=== PATIENT | male | born 1985 | race African-American/Black ===

== ENCOUNTER 2019-03-28 08:42 | Emergency (ER) | payer SELFPAY ==
[~2019-03-28] VITALS: Ht 177.8 cm; Wt 156.5 kg
[2019-03-28] MEDS ORDERED: MORPHINE SULFATE 4 MG/ML SYR/VIAL IV ONE (09:15)
[2019-03-28] MEDS ORDERED: ONDANSETRON HCL 4 MG/2 ML VIAL IV ONE (09:15)
[2019-03-28 09:44] LABS: Basophils # (auto) 0.1 uL; Eosinophils # (auto) 0.1 uL; Lymphocytes # (auto) 1.2 uL; Monocytes # (auto) 0.7 uL
[2019-03-28 09:47] LABS: Basophils % (auto) 0.9 % (0.0-2.0); Hemoglobin 14.3 g/dL (13.5-17.5); Lymphocytes % (auto) 17.1 % (10.0-50.0); Mean Corpuscular Hemoglobin 25.7 pg (28.0-32.0); Mean Corpuscular Hgb Conc. 33.3 g/dL (32.0-36.0); Mean Corpuscular Volume 77.1 fL (80.0-100.0); Monocytes % (auto) 9.7 % (0.0-12.0); Neutrophils # (auto) 4.8 uL; Neutrophils % (auto) 71.3 % (37.0-80.0); Nucleated Red Blood Cells % 0.2 %; Platelet Count (auto) 324 10^3/uL (140-450); Red Blood Cells 5.58 10^6/uL (4.5-5.90); Red Cell Distribution Width 16.4 % (11.8-14.3); White Blood Cell 6.8 10^3/uL (4.4-10.8)
[2019-03-28 10:02] LABS: Albumin 3.7 g/dL (3.4-5.0); Anion Gap 5 (5-15); Blood Urea Nitrogen 11 mg/dL (7-18); Calcium 9.3 mg/dL (8.5-10.1); Carbon Dioxide 31 mmol/L (21-32); Chloride 100 mmol/L (98-107); Glucose 110 mg/dL (74-106); Potassium 4.2 mmol/L (3.5-5.1); Sodium 136 mmol/L (136-145)
[2019-03-28 10:08] LABS: Alanine Aminotransferase 21 U/L (16-61); Alkaline Phosphatase 164 U/L (45-117); Aspartate Aminotransferase 11 U/L (15-37); BUN/Creatinine Ratio 11.5; Bilirubin, Total 0.6 mg/dL (0.2-1.0); GFR African American 116 mL/min; GFR Non-African American 96 mL/min; INR 1.07 (0.9-1.15); Partial Thromboplastin Time 27.3 sec (23.64-32.05); Total Protein 8.6 g/dL (6.4-8.2)
[2019-03-28] MEDS ORDERED: IOHEXOL 350 MG/ML 100ML IJ ONE (10:59)
[2019-03-28 12:50] VITALS: BP 132/83
== END 2019-03-28 13:10 | disposition home or self-care (01) ==
LOC: EDBD 08:42 → ER 08:42
DX: R07.89 Other chest pain (principal); R06.02 Shortness of breath; R42 Dizziness and giddiness; E78.00 Pure hypercholesterolemia, unspecified; I10 Essential (primary) hypertension; I25.2 Old myocardial infarction
CPT/HCPCS: 36415; 71046; 71275; 80053; 83735; 83880; 84484; 85025; 85610; 85730; 94761; 96374; 96375; 99284; J2270; J2405; Q9967